=== PATIENT | male | born 1955 | race Caucasian/White ===

== ENCOUNTER → 2020-03-15 | Outpatient (CLI) | payer OTHER ==
[~2020-03-15] MED LIST: ASPIRIN EC81 M1 PO; ATORVASTATIN CA20 MG PO; CARVEDILOL6.25 M1 PO; IRBESARTAN75 MG PO; LEVEMIR FL100 UNIT/2 SUBQ; NITROGLYCERIN0.4 MG SUBLING; OZEMPIC1 MG/0.75 SUBQ; PROTONIX40 M2 PO; SYNJARDY XR 121 EACH PO; VITAMIN D31250 MCG PO
== END ==
LOC: LAB 08:08
PROVIDERS: ATTEND Otolaryngology
DX: Z01.812 Encounter for preprocedural laboratory examination (principal); Z20.828 Contact with and (suspected) exposure to other viral communicable diseases

== ENCOUNTER 2020-03-19 10:24 | Day surgery (SDC) | payer OTHER ==
[~2020-03-19] VITALS: Ht 165.1 cm; Wt 76.2 kg
--- NOTE | ~2020-03-19 | O ---
[facility] [place] [address] [address] OPERATIVE REPORT Name: CHARLENE RANGEL Room #: [facility]P [facility] M.R.#: [id number] Admission: 03/19/20 Attend Phys: Jean Pierre Reid MD Discharge: 03/19/20 Date of : 51 Report #: [id number] THIS REPORT FOR: cc: Kaylah Farmer,Jean Pierre Vences MD ~ CC: Jean Pierre Farmer DATE OF SERVICE: 03/19/2020 PREOPERATIVE DIAGNOSES: 1. Left external ear squamous cell carcinoma. 2. Mohs deformity, left external ear. POSTOPERATIVE DIAGNOSES: 1. Left external ear squamous cell carcinoma. 2. Mohs deformity, left external ear. PROCEDURES PERFORMED: 1. Adjacent tissue transfer, left ear more than 10 square centimeters. 2. Second adjacent tissue transfer, left ear more than 10 square centimeters. 3. Full thickness skin graft 6 x 3 cm with closure of donor site. PRIMARY SURGEON: Jean Pierre Reid M.D. EDITORIAL WRITER: ____ ANESTHESIA: General. SPECIMENS: None. INDICATIONS FOR THE PROCEDURE: The patient is a 64-year-old male with a history of cutaneous malignancy, who recently underwent Mohs micrographic excision of the left external ear for squamous cell carcinoma that was poorly differentiated. He was referred to me by Dr. Ashutosh Lambetr for formal reconstruction and to evaluate lymph nodes. He was counseled about the procedures and agreed to proceed with the procedures as listed above. DESCRIPTION OF PROCEDURE: The patient was identified in the preoperative area before being transported to the operating room and placed supine on the operating table. At this point, general endotracheal anesthesia was induced and a timeout was called to ensure patient identity and procedure to be performed. Next, the table was turned 90 degrees and the area was cleansed thoroughly and [facility] [address] [place] [address] OPERATIVE REPORT Name: CHARLENE RANGEL Room #: [facility]P [facility].#: [id number] Admission: 03/19/20 Attend Phys: Jean Pierre Reid MD Discharge: 03/19/20 Date of : 51 Report #: [id number] local injection injected pre and postauricularly with 1% lidocaine 1:100,000 epinephrine solution. First, I planned out a preauricularly based transposition flap from the area of skin posterior to the temporal hair tuft and anterior to the tragus. This was approximately 2.5 cm in width and proceeded down to the inferior aspect of the earlobe. This area was incised sharply with a #15 blade down into the subcutaneous plane and elevated using a #15 blade in the subcutaneous plane. The area around it was widely undermined and a small ____ suspension was performed using a 3-0 Vicryl suture. The deep layers were closed with a 4-0 Vicryl suture placed in a deep interrupted fashion and the flap was transposed over ____ tragus into the upper antihelix and conchal bowl defects and sutured into position using 5-0 fast absorbing gut suture in a running fashion. Once this was tacked into position, the preauricular skin edges were also closed with 5-0 fast absorbing gut. Next, attention was turned to developing and raising a postauricularly based and inferiorly based transposition flap that was raised from the subcutaneous plane over the mastoid periosteum and transposed up onto the helical rim to reconstitute a better rim in this area. This was left pedicled inferiorly, which will have to be divided at a future surgery. Once this was tacked into position using 5-0 fast absorbing gut, a left upper pectoral full thickness skin graft was planned being approximately 6 x 3 cm. This area was also injected locally with 1% lidocaine, 1:100,000 epinephrine solution. A #15 blade was used to sharply incise the skin and resect the skin graft in the dermal plane. This was put in a saline-soaked sponge on the backtable. Attention was turned back to the chest where hemostasis was achieved using a bipolar cautery followed by layered closure with 4-0 Vicryl suture placed in a deep fashion followed by 4-0 chromic in a running locking fashion on the skin. This completed the harvest of the graft. Attention was then turned to insetting the full-thickness skin graft. Several tacking sutures using 5-0 fast absorbing gut were placed followed by running suture around its periphery. Finally, multiple quilting sutures were placed through both the transposition flaps and through the full-thickness skin graft using a combination of 5-0 fast absorbing gut and a 3-0 Vicryl suture placed, full thickness through the external ear. At this point, final check for hemostasis was performed and it was good. The patient was returned to anesthesia where he was successfully and safely reversed and transported to the PACU in stable condition. DISPOSITION: The patient may be discharged from the PACU after meeting general discharge criteria. He is to take shower in 24 hours and keep the area very clean on daily basis and apply liberal amounts of Aquaphor ointment to the area. I have given him prescriptions for pain medication, antinausea pills and an antibiotic. I will see him in 1 week's time for a wound check and to discuss future stages to repair his external ear. He may call our office with any [address] [address] OPERATIVE REPORT Name: CHARLENE RANGEL Room #: [facility] MR.#: [id number] Admission: 03/19/20 Attend Phys: Jean Pierre Reid MD Discharge: 03/19/20 Date of : 51 Report #: [id number] issues. Please note that all instrument, sponge and needle counts were correct x 2. By: [id number] Jean Pierre Reid MD /nt
[2020-03-19 11:46] VITALS: BP 133/77
== END 2020-03-19 17:05 | disposition home or self-care (01) ==
LOC: OR → TBA 10:25 → OR 12:01
PROVIDERS: ATTEND Otolaryngology
DX: H61.112 Acquired deformity of pinna, left ear (principal); C44.229 Squamous cell carcinoma of skin of left ear and external auricular canal; I10 Essential (primary) hypertension; E11.9 Type 2 diabetes mellitus without complications; Z98.890 Other specified postprocedural states; Z79.899 Other long term (current) drug therapy; Z79.4 Long term (current) use of insulin; Z85.820 Personal history of malignant melanoma of skin; Z85.46 Personal history of malignant neoplasm of prostate; Z85.828 Personal history of other malignant neoplasm of skin
CPT/HCPCS: 50010; 50101; 50386; 50417; 51412; 56526; 56528; 57006; 62110; 62900; 70005